=== PATIENT | female | born 1990 | race Hispanic/Latino ===

== ENCOUNTER 2024-09-11 13:35 | Emergency (ER) | payer MEDICAID ==
[~2024-09-11] VITALS: Ht 154.9 cm; Wt 86.7 kg
--- NOTE | 2024-09-11 13:54 | ERN ---
ED Note History of Present Illness Stated Complaint: ABDOMINAL PAIN Chief Complaint: Abdominal Pain Time Seen by MD: 13:39 Dictation: PATIENT IS A 33-YEAR-OLD FEMALE COMING IN TODAY WITH COMPLAINTS OF ABDOMINAL PAIN BLOATING WITH NAUSEA VOMITING ONSET 2-3 DAYS PRIOR TO ARRIVAL. SHE HAS HAD NO FEVER NO CHILLS. SHE DOES STATE SHE ALSO HAS CHEST PAIN THAT RADIATES TO RIGHT SHOULDER AND DOWN TO HER LOWER QUADRANT. SHE STATES SHE IS STATUS POST A GASTRIC SLEEVE 08/31/[address] LUC HARRIS AT [facility]. SHE SAID SHE IS FOLLOWED UP WITH THE HIM SINCE THE SURGERY AND HE TOLD HER THAT THIS WAS ALL NORMAL. Allergies: Coded Allergies: No Known Drug Allergies (Unverified Allergy, Unknown, 09/11/24) Past Medical History Past Medical History: No Pertinent History Surgical History: Bariatric Surgery History: Not Applicable RN Note Reviewed/Agreed w/PFSH: Yes Review of System Dictation CONSTITUTIONAL: NEGATIVE EXCEPT FOR HPI HEAD/FACE: NEGATIVE EXCEPT FOR HPI EENT: NEGATIVE EXCEPT FOR HPI RESPIRATORY: NEGATIVE EXCEPT FOR HPI GASTROINTESTINAL/ABDOMINAL: NEGATIVE EXCEPT FOR HPI EPIGASTRIC PAIN WITH NAUSEA VOMITING/BLOATING PAIN RADIATES TO LEFT SHOULDER AND THEN DOWN TO HER ABDOMEN. GENITOURINARY: NEGATIVE EXCEPT FOR HPI MUSCULOSKELETAL: NEGATIVE EXCEPT FOR HPI INTEGUMENTARY: NEGATIVE EXCEPT FOR HPI NEUROLOGICAL/PSYCH: NEGATIVE EXCEPT FOR HPI HEMATOLOGIC/LYMPHATIC: NEGATIVE EXCEPT FOR HPI ALL SYSTEMS NEGATIVE, EXCEPT NOTED ABOVE. 13 POINT REVIEW OF SYSTEMS ASSESSED AND ALL NEGATIVE EXCEPT FOR ABOVE. Initial Vital Sign VS Vital Signs Date Time Temp Pulse Resp B/P (MAP) Pulse Ox O2 Delivery O2 Flow Rate FiO2 09/11/24 13:41 100.9 139 18 142/82 93 Room Air 0 09/11/24 13:46 21 Physical Exam Dictation VITAL SIGNS REVIEWED GENERAL APPEARANCE: ALERT, ORIENTED X 3, MODERATE ACUTE DISTRESS, WELL DEVELOPED, NOURISHED. OBESE HEAD AND FACE: NON-TRAUMATIC. EYES: PERRL, PINK CONJUNCTIVAS, EYELID NO TRAUMA, ANTERIOR CHAMBER WITH ARCUS SENILIS. EARS: PINNAS INTACT AND NO SIGNS OF TRAUMA OR ERYTHEMA EAR CANALS CLEAR AND NO DISCHARGE TM NO ERYTHEMA NOSE: NO DISCHARGE, NO BLEEDING. OROPHARYNX: MOUTH NORMAL, TONGUE PINK, PHARYNX CLEAR,NO ERYTHEMA, TONSILS NO EXUDATES, NO ABSCESSES NOTED, MUCOUS MEMBRANE MOIST NECK: SUPPLE, NON-TENDER, NO THYROMEGALY, NO MASSES, NO JVD, NO BRUITS BREAST:DEFERRED CHEST:NO TENDERNESS, NO CREPITUS, NO PARADOXICAL MOVEMENT, NO RETRACTIONS LUNGS:CLEAR, WELL-VENTILATED, SYMMETRIC, NO RALES, NO WHEEZING, NO RHONCHI, NO HEART: TACHYCARDIC, NO MURMUR, NO GALLOPS VASCULAR: NO PERIPHERAL EDEMA, ABDOMEN: SOFT, POSITIVE BOWEL SOUNDS, NONDISTENDED, NO GUARDING, MODERATE EPIGASTRIC PAIN TENDERNESS WITH PALPATION, NO REBOUND, NO MASSES NO HEPATOMEGALY, NO SPLENOMEGALY, NO HERNÁNDEZ'S SIGN, NO HERNIAS. RECTAL: DEFERRED GENITAL: DEFERRED NEUROLOGICAL: NORMAL SPEECH, MOTOR FUNCTION INTACT, SENSORY FUNCTION INTACT MUSCULOSKELETAL: NECK NONTENDER, FULL RANGE OF MOTION, BACK NONTENDER, FULL RANGE OF MOTION, EXTREMITIES: NONTENDER, FULL RANGE OF MOTION SKIN: COLOR PINK, DRY, NO TURGOR, NO RASH, NO LACERATIONS, NO ABRASIONS, NO CONTUSIONS. LYMPHATIC: DEFERRED Results (Laboratory/Radiology) Laboratory/Radiology Laboratory Tests Test 09/11/24 14:03 09/11/24 14:30 09/11/24 15:55 09/11/24 18:19 White Blood Count 34.2 K/uL (4.8-10.8) *H Red Blood Count 3.61 MIL/uL (4.00-5.50) L Hemoglobin 10.7 g/dL (12.0-16.0) L Hematocrit 31.1 % (36-48) L Mean Corpuscular Volume 86.1 fL (79-99) Mean Corpuscular Hemoglobin 29.6 pg (27.0-33.0) Mean Corpuscular Hemoglobin Concent 34.4 g/dL (32.0-36.0) Red Cell Distribution Width 14.7 % (11.0-15.5) Platelet Count 569 K/uL (130-400) H Mean Platelet Volume 10.5 fL (7.5-10.5) Immature Granulocyte % (Auto) 2.0 % (0-1) H Neutrophils (%) (Auto) 88.6 % (40.0-77.0) H Lymphocytes (%) (Auto) 5.6 % (21.0-51.0) L Monocytes (%) (Auto) 3.6 % (3.0-13.0) Eosinophils (%) (Auto) 0.0 % (0.0-8.0) Basophils (%) (Auto) 0.2 % (0.0-5.0) Neutrophils # (Auto) 30.3 K/uL (1.8-7.7) H Lymphocytes # (Auto) 1.9 K/uL (1.0-4.8) Monocytes # (Auto) 1.2 K/uL (0.1-1.0) H Eosinophils # (Auto) 0.01 K/uL (0.00-0.70) Basophils # (Auto) 0.08 K/uL (0.00-0.20) Absolute Immature Granulocyte (auto 0.70 K/uL (0-1) Segmented Neutrophils % 71 % (40-70) H Band Neutrophils % 13 % (0-2) H Lymphocytes % (Manual) 7 % (22-44) L Monocytes % (Manual) 6 % (2-9) Nucleated Red Blood Cells 0.2 % (0.0-0.19) H Differential Comment MANUAL DIFFERENTIAL Reactive Lymphocytes 3 % (0-0) H White Cell Morphology Comment Platelet Morphology Comment See comments Red Blood Cell Morphology See comments D-Dimer Quantitative (PE/DVT) 6209 ng/mL (0-500) *H Sodium Level 139 mmol/L (136-145) 138 mmol/L (136-145) Potassium Level 3.0 mmol/L (3.5-5.1) *L 3.1 mmol/L (3.5-5.1) L Chloride Level 101 mmol/L (101-111) 102 mmol/L (101-111) Carbon Dioxide Level 25 mmol/L (21-32) 27 mmol/L (21-32) Blood Urea Nitrogen 11 mg/dL (7-18) 11 mg/dL (7-18) Creatinine 0.7 mg/dL (0.5-1.0) 0.7 mg/dL (0.5-1.0) Glomerular Filtration Rate Calc 118 mL/min (>90) 118 mL/min (>90) Random Glucose 166 mg/dL (70-105) H 164 mg/dL (70-105) H Lactic Acid Level 2.4 mmol/L (0.8-2.5) Total Calcium 8.5 mg/dL (8.5-10.1) 8.3 mg/dL (8.5-10.1) L Lipase 217 U/L (16-77) H Influenza Type A Antigen Negative For Type A Influenza Type B Antigen Negative For Type B SARS-CoV-2 Antigen (Rapid) PRESUMPTIVE NEGATIVE Total Bilirubin 0.7 mg/dL (0.2-1.0) Aspartate Amino Transf (AST/SGOT) 52 U/L (10-37) H Alanine Aminotransferase (ALT/SGPT) 106 U/L (12-78) H Alkaline Phosphatase 158 U/L (50-136) H Total Protein 7.0 g/dL (6.0-8.3) Albumin 2.0 g/dL (3.5-5.0) L Urine Color YELLOW (YELLOW) Urine Appearance CLEAR (CLEAR) Urine pH 6.5 (5.0-8.0) Urine Specific [place] OVER (1.001-1.031) Urine Protein 30 mg/dL (NEGATIVE) H Urine Glucose (UA) NEGATIVE mg/dL (NEGATIVE) Urine Ketones 10 mg/dL (NEGATIVE) H Urine Occult Blood SMALL (NEGATIVE) H Urine Nitrate NEGATIVE (NEGATIVE) Urine Bilirubin NEGATIVE mg/dL (NEGATIVE) Urine Urobilinogen 0.2 mg/dL (0.2-1.0) Urine Leukocyte Esterase NEGATIVE Nery/uL Urine RBC 11-25 /HPF (0-1) H Urine WBC 2-5 /HPF (0-1) H Urine Squamous Epithelial Cells FEW /HPF (0-2) Urine Bacteria RARE /HPF (None Seen) Test 09/11/24 19:58 Lactic Acid Level 1.3 mmol/L (0.8-2.5) Triglycerides Level 84 mg/dL (30-200) Serum Test, Qualitative NEGATIVE (NEGATIVE) PATIENT: EVONNE BARROS MR#: [id number] : 1990 SEX: F AGE: 33 LOCATION: [facility] ORDER 1352 STATUS: REG ER REPORT#: [id number] SERVICE 1351 REASON: EPIGASTRIC PAIN BLOATING STATUS POST GASTRIC SLEEVE ORDERING PHYSICIAN: CHELLE JONES NP PROCEDURE: ABD PEL W - CT ABDOMEN/PELVIS W/CONTRAST Examination: 1. CT examination of the chest without and with contrast 2. CT examination of the abdomen and pelvis with contrast Clinical history: Pain following gastric sleeve procedure Comparison: None Findings: Thin collimated axial CT images of the chest were obtained prior to and following the intravenous administration of nonionic contrast. Left lower lobe airspace disease likely reflects a combination of atelectasis and pneumonia. There is a small left pleural effusion. Dependent atelectasis within the right lower lobe. The examination was not performed with angiographic protocol to evaluate the pulmonary arteries; however, there is suggestion of filling defects within left lower lobe subsegmental arteries (series 4, image 35). Recommend dedicated CT angiogram of the chest to exclude pulmonary embolism. Trace pericardial effusion. Heart size is within normal limits. There is no lymphadenopathy within the chest. Prior gastric sleeve procedure. There is an air-fluid collection along the greater curvature of the stomach that measures approximately 7.8 x 10.0 x 5.2 cm, concerning for leak with resultant intra abdominal abscess. There is small pneumoperitoneum within the upper abdomen, and small free fluid within left upper and right ventral abdomen. There is edema within the greater omentum. There is no focal abnormality appreciated within the liver, gallbladder, either adrenal gland, either kidney, spleen, or pancreas. Small and large bowel loops are normal in caliber without evidence of obstruction, ileus, or obvious bowel wall thickening. No CT evidence of appendicitis. Bladder is unremarkable. There is small fluid within the pelvis, and cul-de-sac. Pelvic organs are unremarkable. Opacified abdominal and pelvic vessels are patent. Postsurgical changes within the ventral abdomen. There is thickening and intra/intramuscular edema and fluid within the left ventral abdominal wall. There is a collection within the left ventral abdominal wall that measures approximately 19.0 x 1.8 x 11.0 cm. It is unclear whether this reflects postsurgical seroma or an infectious/inflammatory process. Clinical correlation is advised. There is no acute or suspicious osseous abnormality. IMPRESSION: 1. Probable gastric sleeve leak with pneumoperitoneum and 7.8 x 10.0 x 5.2 cm perigastric abscess. 2. Left ventral abdominal wall collection measuring 19.0 x 1.8 x 11.0 cm, may represent seroma or infection. 3. Left lower lobe pneumonia with small pleural effusion. 4. Possible subsegmental pulmonary emboli in the left lower lobe. Recommend dedicated CT pulmonary angiogram for further evaluation. /[place] DICTATED BY: ALEX IVY Jr., MD Labs Reviewed?: Yes EKG Comment: EKG SINUS RHYTHM/HEART RATE 95/AXIS NORMAL ARTIFACT NOTED ED Course ED Course Orders Procedure Category Date Status Time D-Dimer LAB 09/11/24 Complete 13:43 Blood Cult CAMELIA 09/11/24 In Process 13:43 Lactic Acid LAB 09/11/24 Complete 13:43 Cbc With Differential LAB 09/11/24 Complete 13:43 Urinalysis Profile LAB 09/11/24 Complete 13:43 Lipase LAB 09/11/24 Complete 13:43 Basic Metabolic Panel LAB 09/11/24 Complete 13:43 M.V.I. Iv [Adult] PHA 09/11/24 Complete (M.V.I. Iv [Adult])... 13:43 Morphine 2mg Syg PHA 09/11/24 Complete (Morphine 2mg Syg) 14:00 Ondansetron 4mg Inj PHA 09/11/24 Complete (Zofran 4mg Inj) 14:00 Covid19 (Sars Antigen LAB 09/11/24 Complete Rapid) 13:51 Influenza Type A & B, LAB 09/11/24 Complete Rapid 13:51 Ct Abdomen/Pelvis CT 09/11/24 Resulted W/Contrast 13:51 Manual Differential LAB 09/11/24 Complete 14:03 Zosyn 3.375gm+Ns 50ml PHA 09/11/24 Complete (Zosyn 3.375gm+Ns 14:39 Potassium Bicarb/Cit PHA 09/11/24 Complete Ac 25meq (K-Lyte Ta 15:00 0.9%Nacl 1000ml (Ns PHA 09/11/24 Complete 1000ml) 15:00 Diatr PHA 09/11/24 Complete Meglu/Diatrizoate 15:10 Comprehensive LAB 09/11/24 Complete Metabolic Panel 15:43 Ct Chest Pe Protocol CT 09/11/24 Resulted Wwo Cont 15:43 Hydromorphone 1 Mg PHA 09/11/24 Complete Inj (Dilaudid 1mg Inj 16:00 Iohexol (Omnipaque) PHA 09/11/24 Complete 17:07 Lactic Acid (Removed) LAB 09/11/24 Complete 17:35 Vancomycin 1g/250ml PHA 09/11/24 Complete Kit (Vancomycin 1g/2 19:00 General Surgery CONPHYSVC 09/11/24 Transmitted Consult 19:01 Enoxaparin Sodium 100 PHA 09/11/24 Complete Mg/1 Ml (Lovenox) 19:30 Testing, LAB 09/11/24 Complete Serum Hcg 19:40 Triglycerides LAB 09/11/24 Complete 19:40 Edm Admit Bridge Order ADM 09/11/24 Transmitted 19:[address] Ct Chest Pe Protocol CT 09/11/24 Logged Wwo Cont 19:49 Echo 2-D Complete ECHO 09/11/24 Logged 19:49 Current Medications Medications (Trade) Dose Ordered Sig/Osito Route PRN Reason Start Time Stop Time Status Last Admin Dose Admin Diatrizoate Meglum/ Diatrizoate Sod (Gastrografin 66-10 Solution) 30 ml STK-MED ONCE .ROUTE 09/11/24 15:10 09/11/24 15:10 DC Enoxaparin Sodium (Lovenox) 90 mg ONCE ONCE SQ 09/11/24 19:30 09/11/24 19:31 DC 09/11/24 19:42 Hydromorphone HCl (DiLAUDid 1MG INJ) 1 mg ONCE ONCE IVP 09/11/24 16:00 09/11/24 16:01 DC 09/11/24 16:10 Iohexol (Omnipaque) 75 ml STK-MED ONCE IV 09/11/24 17:07 09/11/24 17:07 DC Morphine Sulfate (morPHINE 2MG SYG) 2 mg ONCE ONCE IVP 09/11/24 14:00 09/11/24 14:01 DC 09/11/24 14:22 Multivitamins/ Minerals 10 ml/ Folic Acid 1 mg/ Thiamine HCl 100 mg/Sodium Chloride 1,010 ml @ 150 mls/hr ONCE STAT IV 09/11/24 13:43 09/11/24 20:26 DC 09/11/24 14:53 Ondansetron HCl (zoFRAN 4MG INJ) 4 mg ONCE ONCE IVP 09/11/24 14:00 09/11/24 14:01 DC 09/11/24 14:21 Piperacillin Sod/ Tazobactam Sod (Zosyn 3.375gm+NS 50ml) 3.375 gm ONCE STAT IVPB 09/11/24 14:39 09/11/24 14:43 DC 09/11/24 16:09 Potassium Bicarbonate (K-Lyte Tablet Eff 25 Meq Tablet.eff) 25 meq ONCE ONCE PO 09/11/24 15:00 09/11/24 15:01 DC 09/11/24 16:08 Sodium Chloride 1,000 ml @ 0 mls/hr ONCE ONCE IV 09/11/24 15:00 09/11/24 15:01 DC 09/11/24 16:08 Vancomycin HCl (Vancomycin 1g/ 250ml Kit) 1 gm ONCE ONCE IV 09/11/24 19:00 09/11/24 19:01 DC 09/11/24 19:42 Vital Signs Date Time Temp Pulse Resp B/P (MAP) Pulse Ox O2 Delivery O2 Flow Rate FiO2 09/11/24 19:31 101.5 123 23 117/56 97 Nasal Cannula* 2 28 09/11/24 17:00 99.9 113 24 125/63 97 Nasal Cannula* 2 09/11/24 15:59 100.6 125 30 131/70 99 Room Air* 2 N/A Nasal Cannula* 09/11/24 14:30 100.0 125 18 134/70 93 Room Air* 0 21 09/11/24 13:46 100.9 139 18 142/82 93 Room Air* 0 21 09/11/24 13:41 100.9 139 18 142/82 93 Room Air 0 1600/D-DIMER GREATER THAN 6000 PATIENT CONTINUES WITH CHEST PAIN AND SHORTNESS A BREATH. WE WILL INCLUDE CT CHEST PART OF WORKUP. 1901/patient has a gastric leak with large seroma left lower lobe pneumonia and possible pulmonary emboli. Patient has been given 30 per kilos fluids with vanco and Zosyn. Will consult Dr. Harris and have patient admitted to the hospital. Case was discussed with Dr. Turner, additionally I we will start Lovenox 1 milligram/kilos subQ for PE Delay in admission and CT results with readings. 1934/spoke with and reviewed check CAT scan readings interventions for sepsis. He said he patient should be admitted to telemetry maintain NPO and he will talk to Interventional Radiology.1944/ 1944/spoke with the CAYETANO HALL from [facility] and discussed CT labs and my discussion with the surgeon. He will place admission orders to ICU due to patient's sepsis. 1954/spoke with and he is now requesting that we transfer patient to [facility] due to need for Interventional R adiology. I spoke with patient and her at length regarding this at the bedside and they both refused to be transferred to [facility], states that they will go to [facility]. We will follow up with surgeon. 2014/SPOKE WITH PATIENT AND HER AT LENGTH REGARDING THE NEED FOR TRANSFER AND HIGHER LEVEL OF CARE. THEY ARE AWARE INTERVENTIONAL RADIOLOGY, THE SURGEON AND A BED IS AVAILABLE AT [facility]. DR. MYERS HAS NO PRIVILEGES AT [facility]. AFTER SOME DISCUSSION THEY AGREED TOGETHER THAT THEY WOULD GO BACK TO [facility] FOR INTERVENTIONAL RADIOLOGY TO DRAIN THE ABSCESS AND FOR FURTHER TREATMENT. SPOKE WITH DJ RN DIE FORGER AND SHE WILL WORK ON THE TRANSFER. PLZ NOTE THAT ADMISSION WAS CANCELED Medical Decision Making MDM MDM: Differential diagnosis: Surgical complications/infection/pneumonia/emboli/sepsis/electrolyte imbalance/dehydration/pneumonia/ Rationale: Tests considered and ordered secondary to shared decision making include: labs, ECG and radiology Previous outside records reviewed: Old ER visits. Risk of complication and/or morbidity or mortality of patient management: She is moderate to severe Medications-Per medication reconciliation Need for hospitalization: Patient does meet criteria for hospitalization. NPO/broad-spectrum antibiotics/treatment for probable embolized/pneumonia/respiratory support surgical consultation Need for emergency major/minor surgery: Probable revision of gastric sleeve There are no social concerns with this patient. Prescription drug management Prescriptions will include symptomatic care Patient's prior external medical records from other ER visits were reviewed by me as indicated. Prior testing and results from previous visits were reviewed. Prior tests were taken into account with medical decision making and resource utilization, independent historian/historians were used to obtain complete medical history. I independently interpreted the test that were performed, results were reviewed by me and considered findings on radiology if ordered. Medical management and examination interpretation discussions were had by me with other qualified healthcare professionals as indicated for the patient's care. DX & DISP Disposition: Inpatient Decision to Admit Time: 19:07 Departure Impression: Primary Impression: Surgical pneumoperitoneum Additional Impressions: Abdominal wall abscess at site of surgical wound, Left lower lobe pneumonia, Pulmonary emboli, Hypokalemia, Elevated lipase, S/P gastric sleeve procedure, Sepsis, Anemia Condition: Stable Referrals: SELF,REFERRAL (PCP) Time of Disposition: 19:07 I have reviewed the case, and I agree with, Diagnosis and Plan CHELLE JONES NP Sep 11, 2024 13:54
[2024-09-11] MEDS: ondanSETRON 4MG INJ IVP ONE (14:21)
[2024-09-11] MEDS: morPHINE 2 MG SYG IVP ONE (14:22)
[2024-09-11 14:36] LABS: BASOPHILS # (AUTO) 0.08 K/uL (0.00-0.20); BASOPHILS % (AUTO) 0.2 % (0.0-5.0); EOSINOPHILS # (AUTO) 0.01 K/uL (0.00-0.70); HEMATOCRIT 31.1 % (36-48); LYMPHOCYTES # (AUTO) 1.9 K/uL (1.0-4.8); LYMPHOCYTES % (AUTO) 5.6 % (21.0-51.0); MEAN CORPUSCULAR HEMOGLOBIN 29.6 pg (27.0-33.0); MEAN CORPUSCULAR HGB CONC 34.4 g/dL (32.0-36.0); MEAN CORPUSCULAR VOLUME 86.1 fL (79-99); MONOCYTES # (AUTO) 1.2 K/uL (0.1-1.0); MONOCYTES % (AUTO) 3.6 % (3.0-13.0); NEUTROPHILS # (AUTO) 30.3 K/uL (1.8-7.7); NEUTROPHILS % (AUTO) 88.6 % (40.0-77.0); NUCLEATED RED BLOOD CELLS 0.2 % (0.0-0.19); PLATELET COUNT (AUTO) 569 K/uL (130-400); RED BLOOD CELL COUNT(AUTO) 3.61 MIL/uL (4.00-5.50); RED CELL DISTRIBUTION WIDTH 14.7 % (11.0-15.5)
[2024-09-11 14:39] LABS: WHITE BLOOD COUNT (AUTO) 34.2 K/uL (4.8-10.8)
[2024-09-11 14:42] LABS: CREATININE 0.7 mg/dL (0.5-1.0)
[2024-09-11] MEDS: M.V.I. IV [ADULT] 10 ML, FOLic ACID 5 MG/ML VIAL 1 MG, THIAMINE HCL 100 MG in 0.9%NACL ... IV STA (14:53)
[2024-09-11 15:04] LABS: BAND NEUTROPHILS % (MANUAL) 13 % (0-2); LYMPHOCYTES % (MANUAL) 7 % (22-44); MAN.DIFF COMMENT-IMPRESSION MANUAL DIFFERENTIAL; MONOCYTES % (MANUAL) 6 % (2-9); REACTIVE LYMPHOCYTES 3 % (0-0); SEGMENTED NEUTROPHILS % 71 % (40-70); TOTAL CELLS COUNTED 100
[2024-09-11] MEDS ORDERED: DIATR MEGLU/DIATRIZOATE SODIUM 30 ML BOTTLE ONE (15:10)
[2024-09-11 15:48] LABS: INFLUENZA TYPE A Negative For Type A (NEGATIVE); INFLUENZA TYPE B Negative For Type B (NEGATIVE)
[2024-09-11 15:49] LABS: COVID19 (SARS ANTIGEN RAPID) PRESUMPTIVE NEGATIVE (NEGATIVE)
[2024-09-11] MEDS: PoTASSium BIcarbonate/CIT AC 25 MEQ TABLET.EFF PO ONE (16:08)
[2024-09-11] MEDS: 0.9%NACL 1000ML 1,000 ML IV ONE (16:08)
[2024-09-11] MEDS: ZOSYN 3.375GM +NS 50ML IVPB STA (16:09)
[2024-09-11] MEDS: hydroMORPHone 1 MG INJ IVP ONE ×2 (16:10→23:04)
[2024-09-11 16:19] LABS: BILIRUBIN,TOTAL 0.7 mg/dL (0.2-1.0); CREATININE 0.7 mg/dL (0.5-1.0); POTASSIUM 3.1 mmol/L (3.5-5.1)
[2024-09-11] MEDS ORDERED: IOHEXOL-350 75 ML VIAL IV ONE (17:07)
[2024-09-11 18:34] LABS: APPEARANCE,URINE CLEAR (CLEAR); BILIRUBIN,URINE NEGATIVE (NEGATIVE); COLOR,URINE YELLOW (YELLOW); GLUCOSE, URINE (UA) NEGATIVE (NEGATIVE); KETONES,URINE 10 mg/dL (NEGATIVE); LEUKOCYTE ESTERASE ,URINE NEGATIVE Leu/uL (NEGATIVE); NITRATE,URINE NEGATIVE (NEGATIVE); OCCULT BLOOD,URINE SMALL (NEGATIVE); PH,URINE 6.5 (5.0-8.0); PROTEIN,URINE 30 mg/dL (NEGATIVE); UROBILINOGEN,URINE 0.2 mg/dL (0.2-1.0)
[2024-09-11 18:35] LABS: ADD UA MICROSCOPIC YES
[2024-09-11 18:37] LABS: BACTERIA,URINE RARE /HPF (None Seen); MUCUS,URINE RARE LPF (None Seen); SQUAMOUS EPITHELIAL CELL,UR FEW /HPF (0-2)
--- NOTE | 2024-09-11 18:50 | HMCIMG ---
Examination: 1. CT examination of the chest without and with contrast 2. CT examination of the abdomen and pelvis with contrast Clinical history: Pain following gastric sleeve procedure Comparison: None Findings: Thin collimated axial CT images of the chest were obtained prior to and following the intravenous administration of nonionic contrast. Left lower lobe airspace disease likely reflects a combination of atelectasis and pneumonia. There is a small left pleural effusion. Dependent atelectasis within the right lower lobe. The examination was not performed with angiographic protocol to evaluate the pulmonary arteries; however, there is suggestion of filling defects within left lower lobe subsegmental arteries (series 4, image 35). Recommend dedicated CT angiogram of the chest to exclude pulmonary embolism. Trace pericardial effusion. Heart size is within normal limits. There is no lymphadenopathy within the chest. Prior gastric sleeve procedure. There is an air-fluid collection along the greater curvature of the stomach that measures approximately 7.8 x 10.0 x 5.2 cm, concerning for leak with resultant intra abdominal abscess. There is small pneumoperitoneum within the upper abdomen, and small free fluid within left upper and right ventral abdomen. There is edema within the greater omentum. There is no focal abnormality appreciated within the liver, gallbladder, either adrenal gland, either kidney, spleen, or pancreas. Small and large bowel loops are normal in caliber without evidence of obstruction, ileus, or obvious bowel wall thickening. No CT evidence of appendicitis. Bladder is unremarkable. There is small fluid within the pelvis, and cul-de-sac. Pelvic organs are unremarkable. Opacified abdominal and pelvic vessels are patent. Postsurgical changes within the ventral abdomen. There is thickening and intra/intramuscular edema and fluid within the left ventral abdominal wall. There is a collection within the left ventral abdominal wall that measures approximately 19.0 x 1.8 x 11.0 cm. It is unclear whether this reflects postsurgical seroma or an infectious/inflammatory process. Clinical correlation is advised. There is no acute or suspicious osseous abnormality. IMPRESSION: 1. Probable gastric sleeve leak with pneumoperitoneum and 7.8 x 10.0 x 5.2 cm perigastric abscess. 2. Left ventral abdominal wall collection measuring 19.0 x 1.8 x 11.0 cm, may represent seroma or infection. 3. Left lower lobe pneumonia with small pleural effusion. 4. Possible subsegmental pulmonary emboli in the left lower lobe. Recommend dedicated CT pulmonary angiogram for further evaluation. /[place]
[2024-09-11] MEDS: VANCOMYCIN KIT 1 GM/250 ML IV.KIT IV ONE (19:42)
[2024-09-11] MEDS: ENOXAPARIN SODIUM 100 MG/1 ML SQ ONE (19:42)
--- NOTE | 2024-09-11 19:45 | NUR ---
DR. HARRIS RECEIVED CALL FROM DR. HARRIS REGARDING THIS PT. HE STATES THAT, BECAUSE THERE IS NO INTERVENTIONAL RADIOLOGIST AVAILABLE UNTIL FRIDAY, THIS ER PT. WILL HAVE TO BE TRANSFERRED TO [facility] WHERE HE PERFORMED SURGERY ON HER A WEEK AGO.
--- NOTE | 2024-09-11 19:54 | NUR ---
CHELLE PRATER SPOKE WITH FAMILY IN REGARDS TO DR. FELICIANO WANTING TO TRANSFER PATIENT BACK TO [facility] WHERE SURGERY INITIALLY TOOK PLACE, PATIENT AND BOTH VOICED THEY ARE NOT WANTING TO GO BACK TO [facility] BUT WILL GO TO [facility]. CHELLE PRATER VOICED UNDERSTANDING AND WILL CALL DR. FELICIANO BACK TO INFORM HIM OF PT WISHES./[place]
[2024-09-11] MEDS: acetaMINOPHEN 500 MG TABLET PO ONE (21:12)
--- NOTE | 2024-09-11 22:31 | NUR ---
TRANSFER AFTER SPEAKING TO ATTENDING ER PHYSICIAN, IT WAS DECIDED THAT NO MORE DIAGNOSTIC TESTING NEEDED TO BE DONE HERE AT [facility]. PT. READY FOR TRANSFER. CALL PLACED TO [facility] TO INITIATE TRANSFER FOR DR. HARRIS'S PT.
[2024-09-11 22:39] VITALS: TEMP 103.6
--- NOTE | 2024-09-11 22:39 | NUR ---
ER MD MADE AWARE OF CONSISTENT FEVER, VERBAL ORDER GIVEN TO GIVE 1L BOLUS IV NOW. ICE PACKS APPLIED BEHIND NECK, UNDER BILATEAL ARMS, AND GROIN./[place]
[2024-09-11] MEDS: 0.9%NACL 1000ML 1,000 ML IV SCH (22:43)
--- NOTE | 2024-09-11 22:56 | NUR ---
TRANSFER PT. ACCEPTED @ 1492 BY RAFAEL GUARDADO FOR TRANSFER TO [facility]. ROOM ASSIGNMENT AT THIS TIME: 1254. REPORT: [id number].
--- NOTE | 2024-09-11 23:18 | NUR ---
[facility] CONTACTED FOR TRANSORT OF CARDIAC MONITORED PT. TO [facility]
--- NOTE | 2024-09-11 23:35 | NUR ---
REPORT GIVEN TO ERICK DODGE FROM [facility] AT THIS TIME./[place]
[2024-09-11 23:43] VITALS: BP 127/61; PULSE 123; RESP 28; TEMP 101.4; O2SAT 97
--- NOTE | 2024-09-11 23:43 | NUR ---
[facility] ARRIVED AT BEDSIDE TO TRANSFER PATIENT./[place]
--- NOTE | 2024-09-11 23:51 | NUR ---
STE LEFT FACILITY WITH PATIENT TO [facility], PT AOX4, NO SIGNS OR SYMPTOMS OF DISTRESS NOTED AT THIS TIME./[place]
== END 2024-09-11 23:53 | disposition short-term general hospital (02) ==
LOC: EDH 13:35
DX: A41.9 Sepsis, unspecified organism (principal); J18.9 Pneumonia, unspecified organism; I26.99 Other pulmonary embolism without acute cor pulmonale; E87.6 Hypokalemia; R74.8 Abnormal levels of other serum enzymes; D64.9 Anemia, unspecified; L02.211 Cutaneous abscess of abdominal wall; Z98.84 Bariatric surgery status; Z20.822 Contact with and (suspected) exposure to COVID-19
CPT/HCPCS: 99285; 71270; 96366; 96365; 96375; 96361; 87426; 84478; 80053; 84703; 83690; 85025; 85378; 87040 ×2; 87804 ×2; 83605 ×2; 81001; 36415; 74177; 96372; 96368; 96376; 80048; Q9963; J1171 ×2; J2270; J7030 ×2; J3411; J2405; J3490; J1650; J2543; J3370; Q9967